=== PATIENT | male | born 1975 | race Caucasian/White ===

== ENCOUNTER 2018-11-29 21:36 | Emergency (ER) | payer BC ==
--- NOTE | 2018-11-29 21:50 | EDM.PDOC ---
ED HPI GENERAL MEDICAL PROBLEM - General Chief Complaint: Trauma Stated Complaint: HURT RIGHT ARM Time Seen by Provider: 11/29/18 21:36 Source of Information: Reports: Patient History Limitations: Reports: No Limitations - History of Present Illness INITIAL COMMENTS - FREE TEXT/NARRATIVE: 42 y.o.w.m in prev healthy condition, came to the ed about 2 hours after he was hit with a base ball onto his right forearm. Pt noticed pain, limited ROM and swelling. No redness no open wound. No N/V/D no SOB no CP or any other acute med issues. BP 138/89 RR 17 Pulse ox 100% on RA, Pulse 52 Temp 36.4 Onset Date: 11/29/18 Onset Time: 19:00 Duration: Hour(s):, Intermittent Location: Reports: Upper Extremity, Right Quality: Reports: Burning, Dull Severity: Mild Improves with: Reports: Cold Therapy, Rest Worsens with: Reports: Movement Context: Reports: Trauma Associated Symptoms: Reports: No Other Symptoms right forearm Pain Score (Numeric/FACES): 9 - Related Data Allergies Allergy/AdvReac Type Severity Reaction Status Date / Time No Known Allergies Allergy Verified 11/29/18 21:53 Home Meds: Home Meds NK [No Known Home Meds] 11/29/18 [History] Review of Systems - Review of Systems Review Of Systems: See Below Constitutional: Reports: No Symptoms Eyes: Reports: No Symptoms Ears: Reports: No Symptoms Nose: Reports: No Symptoms Mouth/Throat: Reports: No Symptoms Respiratory: Reports: No Symptoms Cardiovascular: Reports: No Symptoms GI/Abdominal: Reports: No Symptoms Genitourinary: Reports: No Symptoms Musculoskeletal: Reports: Arm Pain (right forearm), Muscle Pain Skin: Reports: No Symptoms Neurological: Reports: No Symptoms Psychiatric: Reports: No Symptoms ED EXAM, GENERAL - Physical Exam Exam: See Below Exam Limited By: No Limitations General Appearance: Alert, WD/WN, Mild Distress Eye Exam: Bilateral Eye: Normal Inspection Ears: Normal External Exam Ear Exam: Bilateral Ear: Auricle Normal Nose: Normal Inspection Throat/Mouth: Normal Inspection, Normal Lips, Normal Teeth, Normal Voice, No Airway Compromise Head: Atraumatic, Normocephalic Neck: Normal Inspection, Supple, Non-Tender, Full Range of Motion Respiratory/Chest: No Respiratory Distress, Lungs Clear, Normal Breath Sounds Cardiovascular: Normal Peripheral Pulses, Regular Rate, Rhythm, No Edema, No Gallop Peripheral Pulses: 1+: Radial (L) GI/Abdominal: Normal Bowel Sounds, Soft, Non-Tender, No Organomegaly, No Abnormal Bruit, No Mass, Pelvis Stable (Male) Exam: No Hernia Rectal (Males) Exam: Deferred Back Exam: Normal Inspection, Decreased Range of Motion (right forearm/ sup/ pronation) Extremities: Other (right forearm swollen, tender no erythema, Limited ROM, Nl CAP refill) Neurological: Alert, Oriented, CN II-XII Intact, Normal Cognition, Normal Gait Psychiatric: Normal Affect, Normal Mood Skin Exam: Warm, Dry, Intact, Normal Color, No Rash Lymphatic: No Adenopathy Course - Vital Signs Text/Narrative:: 42 y.o.w.m in prev healthy condition, came to the ed about 2 hours after he was hit with a base ball onto his right forearm. Pt noticed pain, limited ROM and swelling. No redness no open wound. No N/V/D no SOB no CP or any other acute med issues. BP 138/89 RR 17 Pulse ox 100% on RA, Pulse 52 Temp 36.4 PE: WNWD W M with right forearm swell, mod and moderate Pro and supination Imaging: Left forearm: NAD Impression: right fore arm sprain DDx: Compartment syndrome, Nec fasciitis ( both unlikely) Tx: Ice, pt refused pain meds. Reexam: Pt was doing fine in the ed Plan: D/C with instructions Last Recorded V/S: Last Vital Signs Temp 36.8 C 11/29/18 21:36 Pulse 52 L 11/29/18 21:36 Resp 17 11/29/18 21:36 BP 138/89 11/29/18 21:36 Pulse Ox 100 11/29/18 21:36 - Orders/Labs/Meds Orders: Active Orders 24 hr Category Date Time Status Forearm 2V Rt [CR] Stat Exams 11/29/18 21:44 Taken Ice Therapy [OM.PC] Routine Oth 11/29/18 21:44 Ordered Departure - Departure Time of Disposition: 22:07 Disposition: Home, Self-Care 01 Condition: Good Clinical Impression: Sprain of forearm, right Qualifiers: Encounter type: initial encounter Qualified Code(s): S63.501A - Unspecified sprain of right wrist, initial encounter - Discharge Information Referrals: PCP,None [Primary Care Provider] - Forms: ED Department Discharge Additional Instructions: Ice, rest and elevation, Motrin for healing and pain, please f/u, come back if your symptoms get worse acutely - My Orders Last 24 Hours: My Active Orders 11/29/18 21:44 Forearm 2V Rt [CR] Stat Ice Therapy [OM.PC] Routine - Assessment/Plan Last 24 Hours: My Active Orders 11/29/18 21:44 Forearm 2V Rt [CR] Stat Ice Therapy [OM.PC] Routine
--- NOTE | 2018-12-02 10:58 | CR ---
INDICATION: Trauma to right forearm, softball hit it just distal to the mid shaft. RIGHT FOREARM: Frontal and lateral views of the right forearm revealed no evidence of an acute fracture, dislocation, or other significant bone or joint abnormality. JULIO C
== END 2018-11-29 22:20 | disposition home or self-care (01) ==
LOC: FB.ED 21:36
DX: S56.911A Strain of unspecified muscles, fascia and tendons at forearm level, right arm, initial encounter (principal); W21.05XA Struck by basketball, initial encounter
CPT/HCPCS: 73090-RT; 99283-25